=== PATIENT | male | born 1980 ===

== ENCOUNTER 2020-12-25 21:47 | Emergency (ER) | payer OTHER ==
[2020-12-25 23:35] VITALS: BP 114/79
[2020-12-26 00:13] LABS: Eosinophils # (Auto) 0.1 K/mm3 (0.0-0.4); Eosinophils % (Auto) 2.9 % (0.0-4.3); Hematocrit 42.5 % (35.5-45.6); Hemoglobin 14.2 gm/dl (11.8-15.2); Lymphocytes % (Auto) 45.4 % (13.4-35.0); Mean Corpuscular HGB Conc 33 % (32-34); Mean Corpuscular Volume 83 fl (84-94); Monocytes # (Auto) 0.3 K/mm3 (0.0-0.8); Monocytes % (Auto) 7.1 % (0.0-7.3); Platelet Count 189 K/mm3 (140-440); Red Cell Distribution Width 12.4 % (13.2-15.2)
[2020-12-26 00:26] LABS: BUN/Creatinine Ratio 10; Blood Urea Nitrogen 9 mg/dL (9-20); Calcium 9.6 mg/dL (8.4-10.2); Hemolysis Index 9
--- NOTE | 2021-01-01 11:11 | Electrocardiograph Report ---
[facility] Test Date: 2020-12-25 Test Time: 23:45:14 Pat Name: RENETTA BUSH Department: Room: Gender: M Pattern Designer: : 1980 Requested By: FRANK HUNT Order Number: [id number] Reading MD: Kiet Hampton Measurements Intervals [place] Rate: 67 P: 62 MN: 148 QRS: 75 QRSD: 78 T: 40 QT: 350 QTc: 369 Interpretive Statements Sinus arrhythmia Otherwise normal ECG No previous ECG available for comparison Electronically Signed On 01-01-2021 11:11:10 EDT by Kiet Hampton
== END 2020-12-25 23:46 | disposition left against medical advice (07) ==
LOC: ED 21:47
DX: R53.1 Weakness (principal); R42 Dizziness and giddiness; Z53.21 Procedure and treatment not carried out due to patient leaving prior to being seen by health care provider
CPT/HCPCS: 36415; 80048; 85025; 93005

== ENCOUNTER 2021-03-16 11:17 | Emergency (ER) | payer OTHER ==
[2021-03-16 11:53] VITALS: BP 107/69
--- NOTE | 2021-03-16 13:29 | Event Note ---
ED Screening Note ED Screening Note: this morning began having lightheadedness states he is having mild abd pain no vomiting +diarrhea no cough no fever no SOB no CP no COVID vaccine no recent COVID test PMHx none no allergies to meds no recent travel no known sick contacts no recent abx no water from a different source no recent camping This initial assessment/diagnostic orders/clinical plan/treatment(s) is/are subject to change based on patients health status, clinical progression and re- assessment by fellow clinical providers in the ED. Further treatment and workup at subsequent clinical providers discretion. Patient/guardian urged not to elope from the ED as their condition may be serious if not clinically assessed and managed. Initial orders include: labs, urine
[2021-03-16 14:07] LABS: Basophils % (Auto) 0.5 % (0.0-1.8); Eosinophils % (Auto) 0.7 % (0.0-4.3); Hematocrit 41.9 % (35.5-45.6); Lymphocytes # (Auto) 1.3 K/mm3 (1.2-5.4); Lymphocytes % (Auto) 25.6 % (13.4-35.0); Mean Corpuscular HGB Conc 34 % (32-34); Mean Corpuscular Volume 82 fl (84-94); Monocytes # (Auto) 0.2 K/mm3 (0.0-0.8); Monocytes % (Auto) 4.5 % (0.0-7.3); Platelet Count 241 K/mm3 (140-440); Red Blood Count 5.11 M/mm3 (3.65-5.03); Red Cell Distribution Width 12.2 % (13.2-15.2)
[2021-03-16 14:11] LABS: Bilirubin,Urine NEG (Negative); Blood,Urine NEG (Negative); Color,Urine Colorless (Yellow); Protein,Urine <15 mg/dL mg/dL (Negative); RBC,Urine < 1.0 /HPF (0.0-6.0); Urobilinogen,Urine < 2.0 mg/dL (<2.0); WBC,Urine < 1.0 /HPF (0.0-6.0)
[2021-03-16 14:32] LABS: Alanine Aminotransferase 22 units/L (7-56); Albumin 4.7 g/dL (3.9-5); BUN/Creatinine Ratio 9; Blood Urea Nitrogen 7 mg/dL (9-20); Calcium 10.1 mg/dL (8.4-10.2); Hemolysis Index 4
--- NOTE | 2021-03-16 14:35 | Emergency Department Report ---
ED Abdominal Pain HPI - General Chief Complaint: Abdominal Pain Stated Complaint: WEAKNESS/ABD PAIN Time Seen by Provider: 03/16/21 13:28 Source: patient Mode of arrival: Ambulatory Limitations: No Limitations - History of Present Illness Initial Comments: 40 year old male presents to ED with complaints of left upper quadrant abdominal pain. He states he has been having this pain x 5mths. It has been constant but waxes and waynes. He states its worse after eating. He describes it as a dull ache, and it is nonradiating. He states that his stool has been softer than usual but otherwise denies any blood in the stool, mucus, melena. He denies any associated nausea vomiting. He denies any alcohol abuse or NSAID abuse. He states he has been to urgent care a few times as well as his PCP. He states they have done lab work but no on has given him a clear diagnosis of what's causing it. He states his PCP has given him a referral to GI for colonoscopy given his family history of colon cancer but as scheduled for March 30. He states that his PCP has ever mentioned what the pain could be coming from and he was offered pain medication for the pain but nothing else. He states that he did not take the pain medication because he wanted to know what what was causing the pain. MD Complaint: abdominal pain -: month(s) (5) - Related Data Previous Rx's Medication Instructions Recorded Last Taken Type Famotidine [Pepcid] 20 mg PO BID #30 tablet 03/16/21 Unknown Rx Pantoprazole [Protonix] 40 mg PO QDAY #30 tablet 03/16/21 Unknown Rx Allergies Allergy/AdvReac Type Severity Reaction Status Date / Time No Known Allergies Allergy Verified 03/16/21 11:54 ED Review of Systems ROS: Stated complaint: WEAKNESS/ABD PAIN Other details as noted in HPI Comment: All other systems reviewed and negative Constitutional: denies: chills, fever Eyes: denies: eye pain, eye discharge, vision change ENT: denies: ear pain, throat pain Respiratory: denies: cough, shortness of breath, SOB with exertion, SOB at rest, wheezing Cardiovascular: denies: chest pain, palpitations, dyspnea on exertion, edema, syncope, paroxysmal nocturnal dyspnea Gastrointestinal: abdominal pain. denies: nausea, vomiting, diarrhea, constipation, hematemesis, melena, hematochezia Genitourinary: denies: urgency, dysuria, frequency, hematuria, discharge, testicular pain, testicular mass Musculoskeletal: denies: back pain, joint swelling, arthralgia, myalgia Skin: denies: rash, lesions, change in color, change in hair/nails, pruritus Neurological: denies: headache, weakness, numbness, paresthesias, confusion, abnormal gait, vertigo Psychiatric: denies: anxiety, depression, auditory hallucinations, visual hallucinations, homicidal thoughts, suicidal thoughts Hematological/Lymphatic: denies: easy bleeding, swollen glands ED Past Medical Hx - Past Medical History Previous Medical History?: No - Surgical History Past Surgical History?: No - Social History Smoking Status: Never Smoker Substance Use Type: None - Medications Home Medications: Home Medications Medication Instructions Recorded Confirmed Last Taken Type Famotidine [Pepcid] 20 mg PO BID #30 tablet 03/16/21 Unknown Rx Pantoprazole [Protonix] 40 mg PO QDAY #30 tablet 03/16/21 Unknown Rx ED Physical Exam - General Limitations: No Limitations General appearance: alert, in no apparent distress - Head Head exam: Present: atraumatic, normocephalic, normal inspection - Eye Eye exam: Present: normal appearance, PERRL, EOMI Pupils: Present: normal accommodation - ENT ENT exam: Present: normal exam, mucous membranes moist, TM's normal bilaterally - Neck Neck exam: Present: normal inspection, full ROM - Respiratory Respiratory exam: Present: normal lung sounds bilaterally. Absent: respiratory distress, wheezes, rales, rhonchi - Cardiovascular Cardiovascular Exam: Present: regular rate, normal rhythm, normal heart sounds - GI/Abdominal GI/Abdominal exam: Present: soft, tenderness (Tenderness to palpation epigastric and left upper quadrant with some mild guarding), guarding. Absent: distended, rebound, rigid - Neurological Exam Neurological exam: Present: alert, oriented X3, CN II-XII intact, normal gait - Psychiatric Psychiatric exam: Present: normal affect, normal mood ED Course Vital Signs 03/16/21 11:52 Temperature 98.1 F Pulse Rate 92 H Respiratory 14 Rate Blood Pressure 107/69 [Left] O2 Sat by Pulse 100 Oximetry ED Medical Decision Making - Lab Data Result diagrams: 03/16/21 13:44 03/16/21 13:44 - Radiology Data Radiology results: report reviewed Patient: RENETTA BUSH MR#: [id number] : 1980 Acct:[id number] Age/Sex: 40 / M ADM Date: 03/16/21 Loc: ED Attending Dr: Ordering Physician: FIONA DEVI Date of Service: 03/16/21 Procedure(s): CT abdomen pelvis w con Accession Number(s): [id number] cc: FIONA DEVI CT abdomen pelvis w con INDICATION / CLINICAL INFORMATION: LUQ abd pain. TECHNIQUE: Axial CT images were obtained through the abdomen and pelvis after IV contrast. All CT scans at this location are performed using CT dose reduction for ALARA by means of automated exposure control. COMPARISON: None available. FINDINGS: LOWER CHEST: No significant abnormality LIVER: 1.6 cm hypoattenuating lesion within the inferior right hepatic lobe demonstrates discontinuous peripheral nodular enhancement, most consistent with a hemangioma. Tiny left hepatic cyst. GALLBLADDER/BILIARY TREE: No significant abnormality PANCREAS: No significant abnormality SPLEEN: No significant abnormality ADRENALS: No significant abnormality KIDNEYS / URETER: Tiny left renal cyst. Kidneys enhance symmetrically. No hydronephrosis. URINARY BLADDER: No significant abnormality REPRODUCTIVE ORGANS: No significant abnormality STOMACH / BOWEL: Colonic diverticulosis without evidence of diverticulitis. Small bowel is normal in caliber. The appendix is normal in caliber. LYMPH NODES: No significant adenopathy. VASCULATURE: No significant abnormality. OTHER: No free air, free fluid, or focal fluid collection is identified. SKELETAL SYSTEM: Mild degenerative changes of the spine. No acute osseous findings. IMPRESSION: 1. No acute abnormality of the abdomen or pelvis. 2. Colonic diverticulosis without evidence of diverticulitis. 2. Other chronic, incidental findings as above. Signer Name: Kathy Farris MD Signed: 03/16/2021 4:47 PM Workstation Name: [id number] Transcribed By: JS Dictated By: KATHY FARRIS MD Electronically Authenticated By: KATHY FARRIS MD Signed Date/Time: 03/16/211646 DD/ 43 TD/TT: - Medical Decision Making 1712: Patient currently resting comfortably, he is not in any acute distress. He is not toxic or ill appearing. He is neurologically intact with normal gait. All labs reviewed and shows nothing acute CT abdomen and pelvis with IV contrast shows diverticulosis without diverticulitis or any other acute abnormalities. Discussed lab results as well as CT results with patient. Exact cause of his left upper quadrant pain unclear, informed him it could be related to peptic ulcer disease or even gastritis since it seems to be worse with food. He does have an appointment scheduled with GI to schedule colonoscopy on 30 March wh ich I recommend that he keeps and also possibly talking to the GI specialist about doing an upper endoscopy. He will be prescribed Protonix and Pepcid in the meantime until his appointment. Patient expressed understanding and agree with plan. Patient was stable at time of discharge - Differential Diagnosis Pancreatitis, cholecystitis, bowel perf, peptic ulcer disease, gastritis Critical care attestation.: If time is entered above; I have spent that time in minutes in the direct care of this critically ill patient, excluding procedure time. ED Disposition Clinical Impression: Left upper quadrant abdominal pain Disposition: HOME / SELF CARE / HOMELESS Is pt being admited?: No Does the pt Need Aspirin: No Condition: Stable Instructions: Peptic Ulcer, [id number], Abdominal Pain, Adult, [id number], Peptic Ulcer Eating Plan Additional Instructions: I recommend that you keep your upper with GI specialist. I do recommend that they also do an endoscopy in addition to the colonoscopy. In the meantime I recommend taking the Pepcid and the Protonix which was prescribed to you today. Also recommend avoiding alcohol, spicy foods, acidic foods, caffeine, as these can flare up your pain if its related to PUD. Return to ED if worse. Prescriptions: Famotidine [Pepcid] 20 mg PO BID #30 tablet Pantoprazole [Protonix] 40 mg PO QDAY #30 tablet Referrals: PRIMARY CARE, [Primary Care Provider] - 3-5 Days Forms: Work/School Release Form(ED) Time of Disposition: 17:01
--- NOTE | 2021-03-16 16:51 | Cat Scan Report ---
CT abdomen pelvis w con INDICATION / CLINICAL INFORMATION: LUQ abd pain. TECHNIQUE: Axial CT images were obtained through the abdomen and pelvis after IV contrast. All CT sc ans at this location are performed using CT dose reduction for ALARA by means of automated exposure c ontrol. COMPARISON: None available. FINDINGS: LOWER CHEST: No significant abnormality LIVER: 1.6 cm hypoattenuating lesion within the inferior right hepatic lobe demonstrates discontinuou s peripheral nodular enhancement, most consistent with a hemangioma. Tiny left hepatic cyst. GALLBLADDER/BILIARY TREE: No significant abnormality PANCREAS: No significant abnormality SPLEEN: No significant abnormality ADRENALS: No significant abnormality KIDNEYS / URETER: Tiny left renal cyst. Kidneys enhance symmetrically. No hydronephrosis. URINARY BLADDER: No significant abnormality REPRODUCTIVE ORGANS: No significant abnormality STOMACH / BOWEL: Colonic diverticulosis without evidence of diverticulitis. Small bowel is normal in caliber. The appendix is normal in caliber. LYMPH NODES: No significant adenopathy. VASCULATURE: No significant abnormality. OTHER: No free air, free fluid, or focal fluid collection is identified. SKELETAL SYSTEM: Mild degenerative changes of the spine. No acute osseous findings. IMPRESSION: 1. No acute abnormality of the abdomen or pelvis. 2. Colonic diverticulosis without evidence of diverticulitis. 2. Other chronic, incidental findings as above. Signer Name: Nicholas Farris MD Signed: 03/16/2021 4:47 PM Workstation Name: [id number]
== END 2021-03-16 17:14 | disposition home or self-care (01) ==
LOC: ED 11:17
DX: R10.12 Left upper quadrant pain (principal); Z79.899 Other long term (current) drug therapy
CPT/HCPCS: 36415; 74177; 80053; 81001; 83690; 85025; 99284; Q9967

== ENCOUNTER 2021-07-16 10:56 | Emergency (ER) | payer OTHER ==
--- NOTE | 2021-07-16 14:53 | XRay Report ---
CHEST 2 VIEWS INDICATION / CLINICAL INFORMATION: Chest Pain. COMPARISON: None available. FINDINGS: SUPPORT DEVICES: None. HEART / MEDIASTINUM: No significant abnormality. LUNGS / PLEURA: No significant pulmonary or pleural abnormality. No pneumothorax. ADDITIONAL FINDINGS: No significant additional findings. IMPRESSION: 1. No acute findings. Signer Name: Vin Dimas MD Signed: 07/16/2021 2:48 PM Workstation Name: [facility] [place] [id number]
[2021-07-16 15:22] LABS: Basophils % (Auto) 0.7 % (0.0-1.8); Eosinophils % (Auto) 0.4 % (0.0-4.3); Hematocrit 43.9 % (35.5-45.6); Hemoglobin 14.1 gm/dl (11.8-15.2); Lymphocytes # (Auto) 1.3 K/mm3 (1.2-5.4); Mean Corpuscular HGB Conc 32 % (32-34); Mean Corpuscular Volume 84 fl (84-94); Monocytes # (Auto) 0.2 K/mm3 (0.0-0.8); Monocytes % (Auto) 5.2 % (0.0-7.3); Platelet Count 195 K/mm3 (140-440); Red Blood Count 5.24 M/mm3 (3.65-5.03); Red Cell Distribution Width 12.4 % (13.2-15.2)
[2021-07-16 15:32] LABS: Partial Thromboplastin Time 32.8 Sec. (24.2-36.6)
[2021-07-16 15:42] LABS: Alanine Aminotransferase 37 units/L (7-56); Albumin 4.7 g/dL (3.9-5); BUN/Creatinine Ratio 9; Blood Urea Nitrogen 7 mg/dL (9-20); Hemolysis Index 10
[2021-07-16 15:45] LABS: Bilirubin,Urine NEG (Negative); Blood,Urine NEG (Negative); Color,Urine Straw (Yellow); Protein,Urine <15 mg/dL mg/dL (Negative); RBC,Urine < 1.0 /HPF (0.0-6.0); Urobilinogen,Urine < 2.0 mg/dL (<2.0)
--- NOTE | 2021-07-16 16:20 | Emergency Department Report ---
<ROLDAN GUERRERO - Last Filed: 07/16/21 16:16> ED Chest Pain HPI - General Chief Complaint: Abdominal Pain Stated Complaint: CHEST PAIN Time Seen by Provider: 07/16/21 14:17 Source: patient Mode of arrival: Ambulatory Limitations: No Limitations - History of Present Illness Initial Comments: This is a 40-year-old male nontoxic, well nourished in appearance, no acute signs of distress presents to the ED with c/o of nasuea, midsternal chest pain with radiation to her back and right upper abdominal pain x several days. Patient stated has some SOB. Patient describes pain as sharp and tightness to chest and sharp pains to RUQ. Patient denies any upper respiratory symptoms. Patient denies any hemoptysis, fever, chills, vomiting, headache, stiff neck, numbness, tingling, abdominal pain. Patient denies pleuritic chest pain. Patient denies any recent travels or long car rides. Patient denies any recent surgeries or any sick contacts. Patient denies any drug allergies or significant PMH. The patient was evaluated in the emergency department for symptoms described in the history of present illness. He/she was evaluated in the context of the global COVID-19 pandemic, which necessitated consideration that the patient might be at risk for infection with the virus that causes COVID-19. Institutional protocols and algorithms that pertain to the evaluation of patients at risk for COVID-19 are in a state of rapid change based on information released by regulatory bodies including the CDC and federal and state organizations. These policies and algorithms were followed during the patient's care in the emergency department. Please note that these policies, procedures and recommendations changed on a rapid basis. MD Complaint: chest pain -: days(s) Pain Location: substernal, other (RUQ) Pain Radiation: none Severity: mild Severity scale (0 -10): 8 Quality: tightness, sharp Improves With: nothing Worsens With: nothing re: nausea. denies: vomting, diaphoresis, dyspnea, sense of impending doom Other Symptoms: denies: cough, fever, syncope, rash, acid taste in mouth, leg swelling, palpitations, burping Treatments Prior to Arrival: none Aspirin use within the Past 7 Days: (0) No - Related Data Previous Rx's Medication Instructions Recorded Last Taken Type Famotidine [Pepcid] 20 mg PO BID #30 tablet 03/16/21 Unknown Rx Pantoprazole [Protonix] 40 mg PO QDAY #30 tablet 03/16/21 Unknown Rx Allergies Allergy/AdvReac Type Severity Reaction Status Date / Time No Known Allergies Allergy Verified 03/16/21 11:54 Heart Score - HEART Score History: Slightly suspicious Age: < 45 Risk factors: No known risk factors Troponin: < normal limit - EKG Read Time Time EKG Completed: 11:04 EKG Read Time: 11:11 - Critical Actions Critical Actions: 0-3 pts:0.9-1.7%risk of adverse cardiac event.Candidate for discharge ED Review of Systems Comment: All other systems reviewed and negative Constitutional: denies: chills, fever Eyes: denies: eye pain, eye discharge, vision change ENT: denies: ear pain, throat pain Respiratory: shortness of breath. denies: cough, orthopnea, SOB with exertion, SOB at rest, stridor, wheezing Cardiovascular: chest pain. denies: palpitations, dyspnea on exertion, orthopnea, edema, syncope, paroxysmal nocturnal dyspnea Endocrine: no symptoms reported Gastrointestinal: abdominal pain, nausea. denies: vomiting, diarrhea, constipation, hematemesis, melena, hematochezia Genitourinary: denies: urgency, dysuria Musculoskeletal: denies: back pain, joint swelling, arthralgia Skin: denies: rash, lesions Neurological: denies: headache, weakness, paresthesias Psychiatric: denies: anxiety, depression Hematological/Lymphatic: denies: easy bleeding, easy bruising ED Past Medical Hx - Past Medical History Previous Medical History?: No - Surgical History Past Surgical History?: No - Social History Smoking Status: Never Smoker Substance Use Type: None - Medications Home Medications: Home Medications Medication Instructions Recorded Confirmed Last Taken Type Famotidine [Pepcid] 20 mg PO BID #30 tablet 03/16/21 Unknown Rx Pantoprazole [Protonix] 40 mg PO QDAY #30 tablet 03/16/21 Unknown Rx ED Physical Exam - General Limitations: No Limitations General appearance: alert, in no apparent distress - Head Head exam: Present: atraumatic, normocephalic - Eye Eye exam: Present: normal appearance - Neck Neck exam: Present: normal inspection, full ROM. Absent: lymphadenopathy - Respiratory Respiratory exam: Present: normal lung sounds bilaterally. Absent: respiratory distress, wheezes, rales, rhonchi, stridor, chest wall tenderness, accessory muscle use, decreased breath sounds, prolonged expiratory - Cardiovascular Cardiovascular Exam: Present: normal rhythm, tachycardia, normal heart sounds. Absent: bradycardia, irregular rhythm, systolic murmur, diastolic murmur, rubs, gallop - GI/Abdominal GI/Abdominal exam: Present: soft, tenderness (RUQ), normal bowel sounds. Absent: distended, guarding, rebound, rigid, diminished bowel sounds - Extremities Exam Extremities exam: Present: full ROM - Back Exam Back exam: Present: normal inspection, full ROM. Absent: tenderness, CVA tenderness (R), CVA tenderness (L), muscle spasm, paraspinal tenderness, vertebral tenderness, rash noted - Neurological Exam Neurological exam: Present: alert, oriented X3, normal gait - Psychiatric Psychiatric exam: Present: normal affect, normal mood - Skin Skin exam: Present: warm, dry, intact, normal color. Absent: rash ED Course - Reevaluation(s) Reevaluation #1: 07/16/21 16:21 Patient is speaking in full sentences with no signs of distress noted. Reevaluation #2: 07/16/21 16:31 At this time, patient signed out to Keara Townsend for further evaluation, treatment, and appropriate disposition. ED Medical Decision Making - Lab Data Result diagrams: 07/16/21 15:10 07/16/21 15:10 Lab Results 07/16/21 07/16/21 07/16/21 Range/Units 15:10 15:10 15:10 WBC 4.3 L (4.5-11.0) K/mm3 RBC 5.24 H (3.65-5.03) M/mm3 Hgb 14.1 (11.8-15.2) gm/dl Hct 43.9 (35.5-45.6) % MCV 84 (84-94) fl MCH 27 L (28-32) pg MCHC 32 (32-34) % RDW 12.4 L (13.2-15.2) % Plt Count 195 (140-440) K/mm3 Lymph % (Auto) 31.0 (13.4-35.0) % [place] % (Auto) 5.2 (0.0-7.3) % Eos % (Auto) 0.4 (0.0-4.3) % Baso % (Auto) 0.7 (0.0-1.8) % Lymph # (Auto) 1.3 (1.2-5.4) K/mm3 Davidson # (Auto) 0.2 (0.0-0.8) K/mm3 Eos # (Auto) 0.0 (0.0-0.4) K/mm3 Baso # (Auto) 0.0 (0.0-0.1) K/mm3 Seg Neutrophils % 62.7 (40.0-70.0) % Seg Neutrophils # 2.7 (1.8-7.7) K/mm3 PT 13.2 (12.2-14.9) Sec. INR 0.90 (0.87-1.13) APTT 32.8 (24.2-36.6) Sec. D-Dimer < 135.00 (0-234) ng/mlDDU Sodium 138 (137-145) mmol/L Potassium 3.8 (3.6-5.0) mmol/L Chloride 97.5 L (98-107) mmol/L Carbon Dioxide 26 (22-30) mmol/L Anion Gap 18 mmol/L BUN 7 L (9-20) mg/dL Creatinine 0.8 (0.8-1.3) mg/dL Estimated GFR > 60 ml/min BUN/Creatinine Ratio 9 % Glucose 83 (75-100) mg/dL Calcium 10.0 (8.4-10.2) mg/dL Total Bilirubin 1.80 H (0.1-1.2) mg/dL AST 28 (5-40) units/L ALT 37 (7-56) units/L Alkaline Phosphatase 105 (35-129) units/L Troponin T (0.00-0.029) ng/mL Total Protein 7.5 (6.3-8.2) g/dL Albumin 4.7 (3.9-5) g/dL Albumin/Globulin Ratio 1.7 % Lipase 35 (13-60) units/L Urine Color (Yellow) Urine Turbidity (Clear) Urine pH (5.0-7.0) Ur Specific [place] (1.003-1.030) Urine Protein (Negative) mg/dL Urine Glucose (UA) (Negative) mg/dL Urine Ketones (Negative) mg/dL Urine Blood (Negative) Urine Nitrite (Negative) Urine Bilirubin (Negative) Urine Urobilinogen (<2.0) mg/dL Ur Leukocyte Esterase (Negative) Urine WBC (Auto) (0.0-6.0) /HPF Urine RBC (Auto) (0.0-6.0) /HPF 07/16/21 07/16/21 Range/Units 15:10 Unknown WBC (4.5-11.0) K/mm3 RBC (3.65-5.03) M/mm3 Hgb (11.8-15.2) gm/dl Hct (35.5-45.6) % MCV (84-94) fl MCH (28-32) pg MCHC (32-34) % RDW (13.2-15.2) % Plt Count (140-440) K/mm3 Lymph % (Auto) (13.4-35.0) % [place] % (Auto) (0.0-7.3) % Eos % (Auto) (0.0-4.3) % Baso % (Auto) (0.0-1.8) % Lymph # (Auto) (1.2-5.4) K/mm3 Davidson # (Auto) (0.0-0.8) K/mm3 Eos # (Auto) (0.0-0.4) K/mm3 Baso # (Auto) (0.0-0.1) K/mm3 Seg Neutrophils % (40.0-70.0) % Seg Neutrophils # (1.8-7.7) K/mm3 PT (12.2-14.9) Sec. INR (0.87-1.13) APTT (24.2-36.6) Sec. D-Dimer (0-234) ng/mlDDU Sodium (137-145) mmol/L Potassium (3.6-5.0) mmol/L Chloride (98-107) mmol/L Carbon Dioxide (22-30) mmol/L Anion Gap mmol/L BUN (9-20) mg/dL Creatinine (0.8-1.3) mg/dL Estimated GFR ml/min BUN/Creatinine Ratio % Glucose (75-100) mg/dL Calcium (8.4-10.2) mg/dL Total Bilirubin (0.1-1.2) mg/dL AST (5-40) units/L ALT (7-56) units/L Alkaline Phosphatase (35-129) units/L Troponin T < 0.010 (0.00-0.029) ng/mL Total Protein (6.3-8.2) g/dL Albumin (3.9-5) g/dL Albumin/Globulin Ratio % Lipase (13-60) units/L Urine Color Straw (Yellow) Urine Turbidity Clear (Clear) Urine pH 8.0 H (5.0-7.0) Ur Specific [place] 1.005 (1.003-1.030) Urine Protein <15 mg/dl (Negative) mg/dL Urine Glucose (UA) Neg (Negative) mg/dL Urine Ketones 20 (Negative) mg/dL Urine Blood Neg (Negative) Urine Nitrite Neg (Negative) Urine Bilirubin Neg (Negative) Urine Urobilinogen < 2.0 (<2.0) mg/dL Ur Leukocyte Esterase Tr (Negative) Urine WBC (Auto) 0.0 (0.0-6.0) /HPF Urine RBC (Auto) < 1.0 (0.0-6.0) /HPF - EKG Data 07/16/21 16:29 Normal sinus rhythm at 85 bpm. Right arterial enlargement. No significant ST or T wave abnormalities Reviewed and signed by . - Radiology Data [facility] [address] [place] [address] XRay Report Signed Patient: RENETTA BUSH MR#: [id number] : 1980 Acct:[id number] Age/Sex: 40 / M ADM Date: 07/16/21 Loc: ED Attending Dr: Ordering Physician: Liliana Redmond MD Date of Service: 07/16/21 Procedure(s): XR chest routine 2V Accession Number(s): [id number] cc: Liliana Redmond MD Fluoro Time In Minutes: CHEST 2 VIEWS INDICATION / CLINICAL INFORMAT ION: Chest Pain. COMPARISON: None available. FINDINGS: SUPPORT DEVICES: None. HEART / MEDIASTINUM: No significant abnormality. LUNGS / PLEURA: No significant pulmonary or pleural abnormality. No pneumothorax. ADDITIONAL FINDINGS: No significant additional findings. IMPRESSION: 1. No acute findings. Signer Name: Vin Dimas MD Signed: 07/16/2021 2:48 PM Workstation Name: [id number] Transcribed By: CHARLI Dictated By: Vin Dimas MD Electronically Authenticated By: Vin Dimas MD Signed Date/Time: 07/16/211447 DD/ 47 TD/TT: - Medical Decision Making 40-year-old male that presents with chest pain, shortness of breath and right u pper abdominal pain. Patient is stable and was examined by me. Patient refused treatment in for any pain but stated he wants to be evaluated and see what is going on. Labs has been obtained. Chest x-ray has been obtained and dictated by radiologist. Negative D-dimer. EKG normal sinus rhythm at 85 bpm. Heart score 0 points. Ultrasound of abdomen limited has been ordered to rule out cholecystitis/cholelithiasis. Patient signed out to Keara Townsend for further evaluation, treatment, and appropriate disposition ED Disposition Clinical Impression: Right upper quadrant abdominal pain, Feeling of chest tightness, Nonspecific chest pain Disposition: 01 HOME / SELF CARE / HOMELESS Condition: Stable Instructions: Abdominal Pain, Adult, [id number], Nonspecific Chest Pain, Adult, [id number], Nonspecific Chest Pain, Adult Additional Instructions: All x-rays are negative ultrasounds negative labs are stable. I recommend for you to follow-up with a primary care provider and a ride operator as well as a post exchange manager. Referrals: ADELINE HERNANDEZ MD [Primary Care Provider] - 3-5 Days [facility] [Provider Group] - 3-5 Days [facility] [Provider Group] - 3-5 Days GIULIA JERONIMO MD [Staff Physician] - 3-5 Days Forms: Work/School Release Form(ED) <JENNAKEARARahul العراقي - Last Filed: 07/16/21 18:08> ED Review of Systems ROS: Stated complaint: CHEST PAIN Other details as noted in HPI ED Course Vital Signs 07/16/21 11:01 Temperature 98.1 F Pulse Rate 99 H Respiratory 16 Rate Blood Pressure 140/75 O2 Sat by Pulse 100 Oximetry ED Medical Decision Making - Lab Data Result diagrams: 07/16/21 15:10 07/16/21 15:10 - Radiology Data Radiology results: report reviewed [facility] [address] [place] [address] Ultrasound Report Signed Patient: RENETTA BUSH MR#: [id number] : 1980 Acct:[id number] Age/Sex: 40 / M ADM Date: 07/16/21 Loc: ED Attending Dr: Ordering Physician: ROLDAN GUERRERO NP Date of Service: 07/16/21 Procedure(s): US abdomen limited Accession Number(s): [id number] cc: ROLDAN GUERRERO NP US abdomen limited INDICATION: RUQ pain COMPARISON: None. FINDINGS: Pancreas: No significant abnormality identified in the visualized portions of the pancreas. Abdominal aorta: No significant abnormality. IVC: Normal. Liver: Simple left hepatic lobe cyst. Gallbladder: Debris in the gallbladder. No gallstones, gallbladder wall thickening, or pericholecystic fluid. Bile ducts: The common bile duct measures 1 mm. Right Kidney: No significant abnormality. Additional findings: No significant additional findings. IMPRESSION: No significant sonographic abnormality. Signer Name: Meliton Patten MD Signed: 07/16/2021 5:20 PM Workstation Name: [id number] Transcribed By: Dictated By: Meliton Patten MD Electronically Authenticated By: Meliton Patten MD Signed Date/Time: 07/16/21 172 DD/ 16 TD/TT: Critical care attestation.: If time is entered above; I have spent that time in minutes in the direct care of this critically ill patient, excluding procedure time. ED Disposition Is pt being admited?: No Does the pt Need Aspirin: No Time of Disposition: 18:00
--- NOTE | 2021-07-16 17:25 | Ultrasound Report ---
US abdomen limited INDICATION: RUQ pain COMPARISON: None. FINDINGS: Pancreas: No significant abnormality identified in the visualized portions of the pancreas. Abdominal aorta: No significant abnormality. IVC: Normal. Liver: Simple left hepatic lobe cyst. Gallbladder: Debris in the gallbladder. No gallstones, gallbladder wall thickening, or pericholecysti c fluid. Bile ducts: The common bile duct measures 1 mm. Right Kidney: No significant abnormality. Additional findings: No significant additional findings. IMPRESSION: No significant sonographic abnormality. Signer Name: Meliton Patten MD Signed: 07/16/2021 5:20 PM Workstation Name: [id number]
[2021-07-16 19:06] VITALS: BP 131/75
--- NOTE | 2021-07-17 11:40 | Electrocardiograph Report ---
[facility] Test Date: 2021-07-16 Test Time: 11:04:18 Pat Name: RENETTA BUSH Department: Room: Gender: M [employer]: [employer] : 1980 Requested By: RAUL ALCOCER Order Number: [id number] Reading MD: Dylan Oden Measurements Intervals [place] Rate: 85 P: 80 VT: 141 QRS: 87 QRSD: 83 T: -12 QT: 324 QTc: 385 Interpretive Statements Sinus rhythm Right atrial enlargement Compared to ECG 12/25/2020 23:45:14 Atrial abnormality now present Sinus arrhythmia no longer present Electronically Signed On 07-17-2021 11:40:39 EST by Dylan Oden
== END 2021-07-16 19:06 | disposition home or self-care (01) ==
LOC: ED 10:56
DX: R10.11 Right upper quadrant pain (principal); R07.89 Other chest pain; Z79.899 Other long term (current) drug therapy
CPT/HCPCS: 36415; 71046; 76705; 80053; 81001; 83690; 84484; 85025; 85379; 85610; 85730; 93005; 99284